=== PATIENT | male | born 1995 | race Caucasian/White ===

== ENCOUNTER 2018-12-24 20:24 | Emergency (ER) | payer OTHER ==
--- NOTE | 2018-12-24 21:25 | ER ---
Nurse's Notes [facility] Name: Bob Ricci Age: 23 yrs Sex: Male : 1995 Arrival Date: 12/24/2018 Time: 20:24 Bed 28 Private MD: Diagnosis: Pain in left knee Presentation: 12/24 20:34 Presenting complaint: [place] and ca1 got caught while running. Transition of care: patient was not received from another setting of care. Onset of symptoms was December 24, 2018 at 20:00. Risk Assessment: Do you want to hurt yourself or someone else? Patient reports no desire to harm self or others. Initial Sepsis Screen: Does the patient meet any 2 criteria? No. Patient's initial sepsis screen is negative. Does the patient have a suspected source of infection? No. Patient's initial sepsis screen is negative. Care prior to arrival: None. 20:34 Method Of Arrival: Ambulatory ca1 20:34 Acuity: KATIUSKA 3 ca1 Triage Assessment: 20:41 Injury Description:. rv Historical: - Allergies: 20:41 No Known Allergies; rv - Home Meds: 20:41 None [Active]; rv - PMHx: 20:41 None; rv - PSHx: 20:41 None; rv - Immunization history:: Adult Immunizations up to date. - Social history:: Smoking status: Patient/guardian denies using tobacco. - Ebola Screening: : Patient negative for fever greater than or equal to 101.5 degrees Fahrenheit, and additional compatible Ebola Virus Disease symptoms Patient denies exposure to infectious person Patient denies travel to an Ebola-affected area in the 21 days before illness onset. Screenin:38 Abuse screen: Denies threats or abuse. Denies injuries from another. Nutritional rv screening: No deficits noted. Tuberculosis screening: No symptoms or risk factors identified. Fall Risk None identified. Assessment: 20:40 General: Appears in no apparent distress. comfortable, Behavior is calm, cooperative. ca1 Pain: Complains of pain in left knee. Neuro: Level of Consciousness is awake, alert, obeys commands, Oriented to person, place, time, situation. Cardiovascular: Patient's skin is warm and dry. Respiratory: Airway is patent. GI: No signs and/or symptoms were reported involving the gastrointestinal system. : No signs and/or symptoms were reported regarding the genitourinary system. EENT: No signs and/or symptoms were reported regarding the EENT system. Derm: Skin is intact. Musculoskeletal: Swelling absent Reports pain in left knee. 21:32 Reassessment: Patient appears in no apparent distress at this time. Patient is alert, ca1 oriented x 3, equal unlabored respirations, skin warm/dry/pink. Knee immobilizer applied on L knee. Pt refused crutches stating they have a pair of crutches at home. Verbalized understanding of proper use of crutches and crutch walking. Vital Signs: 20:37 BP 126 / 64; Pulse 78; Resp 17 S; Temp 98.3(O); Pulse Ox 100% on R/A; Weight 104.33 kg rv (R); Height 6 ft. 3 in. (190.50 cm) (R); Pain 5/10; 21:32 BP 112 / 68; Pulse 76; Resp 16 S; Pulse Ox 97% on R/A; ca1 20:37 Body Mass Index 28.75 (104.33 kg, 190.50 cm) rv ED Course: 20:24 Patient arrived in ED. es 20:31 Mabel Boyd, RN is Primary Nurse. ca1 20:31 Richard Brandon PA is PHCP. cp 20:32 Richard Munoz MD is Attending Physician. cp 20:35 Arm band placed on right wrist. rv 20:37 Triage completed. ca1 20:38 Patient has correct armband on for positive identification. Bed in low position. Call rv light in reach. Side rails up X 1. Pulse ox on. NIBP on. Warm blanket given. Ice pack to injury. 20:38 No provider procedures requiring assistance completed. Patient did not have IV access rv during this emergency room visit. 20:51 Knee Left 3 View XRAY In Process Unspecified. EDMS 21:23 Robert Hensley MD is Referral Physician. cp 21:32 Crutch training done. Knee immobilizer applied on left knee. ca1 Administered Medications: No medications were administered Outcome: 21:24 Discharge ordered by . cp 21:32 Discharged to home via wheelchair. ca1 21:32 Condition: stable 21:32 Discharge instructions given to patient, Instructed on discharge instructions, follow up and referral plans. medication usage, crutch walking, Demonstrated understanding of instructions, follow-up care, medications, crutch walking, Prescriptions given X 1. 21:35 Patient left the ED. ca1 Signatures: Dispatcher [employer] Rae Newman Corey, PA PA cp Vicente, Ronaldo RN RN rv Mabel Boyd RN RN ca1
--- NOTE | 2018-12-24 21:25 | EDPHYS ---
Physician Documentation [facility] Name: oBb Ricci Age: 23 yrs Sex: Male : 1995 Arrival Date: 12/24/2018 Time: 20:24 Bed 28 Private MD: Richard Ace HPI: 12/24 20:45 This 23 yrs old Male presents to ER via Ambulatory with complaints of Knee cp Injury. Historical: - Allergies: 20:41 No Known Allergies; rv - Home Meds: 20:41 None [Active]; rv - PMHx: 20:41 None; rv - PSHx: 20:41 None; rv - Immunization history:: Adult Immunizations up to date. - Social history:: Smoking status: Patient/guardian denies using tobacco. - Ebola Screening: : Patient negative for fever greater than or equal to 101.5 degrees Fahrenheit, and additional compatible Ebola Virus Disease symptoms Patient denies exposure to infectious person Patient denies travel to an Ebola-affected area in the 21 days before illness onset. ROS: 20:55 Constitutional: Negative for body aches, chills, fever, poor PO intake. cp 20:55 Back: Negative for pain at rest, pain with movement. cp 20:55 MS/extremity: Positive for pain, of the left knee, Negative for decreased range of motion, deformity, paresthesias. 20:55 Neuro: Negative for altered mental status, headache, weakness. 20:55 All other systems are negative. Exam: 21:00 Constitutional: The patient appears in no acute distress, alert, awake, well developed, cp well nourished. 21:00 Head/Face: Normocephalic, atraumatic. cp 21:00 Neck: ROM/movement: is normal, is supple, without pain, no range of motions limitations. 21:00 Chest/axilla: Inspection: normal. 21:00 Cardiovascular: Rate: normal. 21:00 Respiratory: the patient does not display signs of respiratory distress, Respirations: normal. 21:00 Back: pain, is absent. 21:00 Musculoskeletal/extremity: ROM: full passive range of motion, in the left knee, limited passive range of motion due to pain, in the left knee, Perfusion: the extremity is normally perfused throughout, Sensation intact. Joints: All joints are normal except the left knee displays tenderness medial aspect left knee, minimal swelling noted, Weight bearing: can bear weight with assistance only. Vital Signs: 20:37 BP 126 / 64; Pulse 78; Resp 17 S; Temp 98.3(O); Pulse Ox 100% on R/A; Weight 104.33 kg rv (R); Height 6 ft. 3 in. (190.50 cm) (R); Pain 5/10; 21:32 BP 112 / 68; Pulse 76; Resp 16 S; Pulse Ox 97% on R/A; ca1 20:37 Body Mass Index 28.75 (104.33 kg, 190.50 cm) rv Procedures: 21:30 Splinting: Splint applied to left knee using knee immobilizer, applied by nurse. cp Examined by me, post splint application: neurovascular intact, Patient tolerated well. MDM: 20:37 Patient medically screened. cp 20:45 Differential diagnosis: dislocation, closed fracture, ligament rupture, tendon rupture. cp 21:24 Data reviewed: vital signs, nurses notes, radiologic studies, plain films. cp 21:24 Test interpretation: by ED physician or midlevel provider: xrays of left knee negative cp for fracture. Counseling: I had a detailed discussion with the patient and/or guardian regarding: the historical points, exam findings, and any diagnostic results supporting the discharge/admit diagnosis, radiology results, the need for outpatient follow up, a orthopedic surgeon, to return to the emergency department if symptoms worsen or persist or if there are any questions or concerns that arise at home. 08 20:37 Order name: Knee Left 3 View XRAY rv 12/24 21:25 Order name: Knee Immobilizer; Complete Time: 21:32 cp 12/24 21:25 Order name: Crutches; Complete Time: 21:32 cp Administered Medications: No medications were administered Disposition: 21:45 Chart complete. cp Disposition: 12/24/18 21:24 Discharged to Home. Impression: Pain in left knee. - Condition is Stable. - Discharge Instructions: Elastic Bandage and RICE, Knee Immobilizer, Knee Pain. - Prescriptions for Naprosyn 500 mg Oral Tablet - take 1 tablet by ORAL route 2 times per day take with food; 20 tablet. - Medication Reconciliation Form, Thank You Letter, Antibiotic Education, Prescription Opioid Use form. - Follow up: Robert Hensley MD; When: 2 - 3 days; Reason: Recheck today's complaints. - Problem is new. - Symptoms have improved. Addendum: 12/26/2018 07:25 Co-signature as Attending Physician, Richard Munoz MD I agree with the assessment and c clements plan of care. Signatures: Dispatcher [employer] EDRichard Urena MD MD cha Page, Corey, PA PA cp Juan King, RN RN rv Acob, Mabel RN RN ca1 Corrections: (The following items were deleted from the chart) 12/24 21:35 21:24 12/24/2018 21:24 Discharged to Home. Impression: Pain in left knee. Condition is ca1 Stable. Forms are Medication Reconciliation Form, Thank You Letter, Antibiotic Education, Prescription Opioid Use. Follow up: Dr. Robert Hensley; When: 2 - 3 days; Reason: Recheck today's complaints. Problem is new. Symptoms have improved. cp
--- NOTE | 2018-12-25 08:16 | RAD REPORT ---
EXAM DESCRIPTION: RAD - Knee Left 3 View - 12/24/2018 8:51 pm CLINICAL HISTORY: Trauma, medial knee pain COMPARISON: None. FINDINGS: Bone fragment at the tibial tubercle has irregular margins inferiorly where it might attac hed to the tibia. Soft tissues anteriorly are not abnormally thickened. Patella tendon itself is inta ct with normal positioning of the patella. No joint effusion seen. Avulsion at the tibial tubercle is possible and correlation is needed with any localizing pain. Tibia is otherwise unremarkable.Femur, patella and fibula show no suspicious findings. No joint space narrowing. No soft tissue abnormality. IMPRESSION: Possible bone avulsion at the tibial tubercle. Correlation is needed with any point tend erness at the patella tendon attachment site. No other acute bone or joint finding seen. Follow-up MR imaging may be helpful to further evaluate the tibial tubercle and to assess for any oth er occult bony injury or internal derangement.
== END 2018-12-24 21:35 | disposition home or self-care (01) ==
LOC: ER 20:24
DX: M25.562 Pain in left knee (principal)
CPT/HCPCS: 99284